=== PATIENT | male | born 1955 | race Caucasian/White ===

== ENCOUNTER 2018-05-20 21:26 | Inpatient (IN) | payer OTHER ==
[~2018-05-20] VITALS: Ht 177.8 cm; Wt 74.3 kg
[~2018-05-20 21:26] MED LIST: ALTACE10 MG PO; HCTZ 25MG25 MG PO; PRILOSEC 20MG20 MG PO
[2018-05-20 22:31] LABS: BASO # 0.1 (0.0-0.2); BASO % 0.5 % (0.0-2.0); GRAN # 11.9 (1.4-6.5); GRAN % 79.4 % (42.2-75.2); LYMPH # 1.9 (1.2-3.4); LYMPH % 12.3 % (20.0-51.0); MEAN CELL VOLUME 100 fl (80.0-100.0); MEAN CORPUSCULAR HGB CONC 32 g/dl (33.0-37.0); MEAN PLATELET VOLUME 12.1 fl (7.4-10.4); MONO # 1.1 (0.1-0.6); MONO % 7.1 % (1.7-9.3); PLATELET COUNT 189 K/mm3 (130-400); RED BLOOD COUNT 5.69 M/mm3 (4.20-5.60); REDCELL DISTRIBUTION WIDTH-CV 13.6 % (11.5-14.5)
[2018-05-20 22:32] LABS: HEMATOCRIT 56.8 % (42.0-52.0); HEMOGLOBIN 18.2 g/dl (13.5-18.0); MEAN CORPUSCULAR HEMOGLOBIN 32 pg (27.0-31.0)
[2018-05-20 22:41] LABS: ACETONE,SERUM SMALL
[2018-05-20 22:47] LABS: ALANINE AMINOTRANSFERASE 21 U/L (21-72); ALBUMIN 4.6 gm/dL (3.5-5.0); ALKALINE PHOSPHATASE 137 U/L (50-136); ANION GAP 33 mmol/L (7-16); AST,SGOT 20 U/L (15-37); BILIRUBIN,TOTAL 0.6 mg/dL (0.0-1.0); BLOOD UREA NITROGEN 31 mg/dL (9-20); CALCIUM 10.9 mg/dL (8.4-10.2); CHLORIDE 98 mmol/L (98-107); CREATININE, serum 2.64 mg/dL (0.66-1.25); LIPASE 199 U/L (23-300); POTASSIUM 5.6 mmol/L (3.4-5.0); SODIUM 137 mmol/L (137-145); TOTAL PROTEIN 7.9 gm/dL (6.4-8.2)
[2018-05-20 22:58] LABS: ARTERIAL BLD GAS O2 SATURATION 97.8 % (92-100); ARTERIAL BLD GAS TCO2 CT 1.9; ARTERIAL BLOOD GAS BASE EXCESS -26.3 (-2-2); ARTERIAL BLOOD GAS HCO3 1.7 meq/L (22-26)
[2018-05-20 22:59] LABS: ARTERIAL BLOOD GAS PCO2 6.5 mmHg (35-45); ARTERIAL BLOOD GAS PO2 151.4 mmHg (80-100); ARTERIAL BLOOD GAS pH 7.04 (7.35-7.45)
[2018-05-20 22:59] LABS: GLUCOSE 770 mg/dL (74-106)
[2018-05-20 23:00] LABS: CARBON DIOXIDE 6 mmol/L (22-30)
[2018-05-20 23:05] LABS: TROPONIN-I 0.035 ng/mL (0.000-0.034)
--- NOTE | 2018-05-20 23:48 | NUR ---
PT PLACED ON NRB DUE TO ABG RESULTS. OXYGENATION IS ADEQUETE, VENTILATION IS NOT. CO2 WAS [address] SERRANO RECOMMENDED NRB TO RECYCLE C02 AND TO DECREASE PTS HYPERVENTILATION. WILL CONTINUE TO MONITOR PT IS BROUGHT TO ICU.
[2018-05-21] VITALS (783 sets, daily range): BP systolic 82–131; BP diastolic 51–80; PULSE 71–106; TEMP 96.3–99.2; O2SAT 70–100
--- NOTE | 2018-05-21 00:15 | NUR ---
Patient arrives to ICU room 3 from ED via cart and is attached to monitors. See associated vitals and assessment. Patient is confused and slighly combative. He does not follow commands appropriately. Pupils are sluggishly reactive. Skin is notably mottled from nipple line to toes and cool to touch. Family is at bedside and Sierra, DIRECT CUSTOMER SERVICE REPRESENTATIVE is present to discuss POC. Insulin gtt is verified to run at 6units/hr or 6ml/hr with NS on straight tubing to left wrist peripheral site. Two 22g peripheral IV's are noted to the left wrist, the more medial IV is noted to be displaced with edema at this site. Unable to flush this line and it is discontinued. Care assumed.
--- NOTE | 2018-05-21 00:30 | NUR ---
Dr. Choi contacted by MAXI Esquivel for weaver tire cord consult.
--- NOTE | 2018-05-21 00:40 | NUR ---
Patient's second peripheral line infiltrates. This is discontinued and MD notified.
--- NOTE | 2018-05-21 00:46 | NUR ---
Femoral line inserted at this time by Dr. Choi using sterile technique and without complication. Sedation provided as documented in MAR. Care ongoing.
[2018-05-21 00:53] LABS: COLLECTION METHOD CLEAN CATCH
[2018-05-21 00:58] LABS: CALCIUM 10.2 mg/dL (8.4-10.2); CREATININE, serum 2.96 mg/dL (0.66-1.25); MAGNESIUM 2.9 mg/dL (1.6-2.3); POTASSIUM 4.8 mmol/L (3.4-5.0)
[2018-05-21 01:02] LABS: MUCOUS Present /lpf; PH 5 (5-8); SQUAMOUS EPITHELIAL 0-2 /hpf; URINE APPEARANCE Clear; URINE BACTERIA Rare /hpf; URINE BILIRUBIN Negative (NEGATIVE); URINE BLOOD 2+ (NEGATIVE); URINE COLOR Yellow; URINE GLUCOSE 3+ (NEGATIVE); URINE KETONE 1+ (NEGATIVE); URINE LEUKOCYTE ESTERASE Negative (NEGATIVE); URINE NITRATE Negative (NEGATIVE); URINE PROTEIN(semi-quant) 1+ (NEGATIVE); URINE RBC 0-2 /hpf; URINE UROBILINOGEN Negative (NEGATIVE)
[2018-05-21 01:34] LABS: INR 0.8 (0.8-3.0); PROTHROMBIN TIME 9.6 SECONDS (9.7-12.8)
[2018-05-21 01:37] LABS: PARTIAL THROMBOPLASTIN TIME 29.8 SECONDS (26.0-37.0)
[2018-05-21 01:59] LABS: ACETAMINOPHEN < 10 ug/mL (10-30); ALCOHOL(ethanol),MEDICAL < 10 mg/dL; SALICYLATE < 1.0 mg/dL
[2018-05-21 02:28] LABS: CALCIUM 8.4 mg/dL (8.4-10.2); CREATININE, serum 2.39 mg/dL (0.66-1.25); MAGNESIUM 2.2 mg/dL (1.6-2.3); POTASSIUM 3.8 mmol/L (3.4-5.0)
--- NOTE | 2018-05-21 02:30 | NUR ---
Dr. Castillo discusses POC with this nurse and is provided telephone number for Dr. Choi per request.
--- NOTE | 2018-05-21 02:36 | NUR ---
Dr. Castillo updates POC to include Anesthesia consult for intubation and ART line placement. supervisor long goods pages AA on provider at this time.
[2018-05-21 02:45] LABS: TRICYCLIC ANTIDEPRESS URINE NEGATIVE
--- NOTE | 2018-05-21 02:46 | NUR ---
Patient , María is called regarding changes to POC. Phone consent is provided for described procedures. All questions asked answered.
--- NOTE | 2018-05-21 03:10 | NUR ---
Patient intubated at this time by Devonte Roberto CRNA. Sedation is as documented and administered by provider. 8.0 tube placed 22cm at the lip with positive bilateral breath sounds upon auscultation. OG is placed 70cm at the lip and placed to LIS. To note, patient experienced 1 round of emesis, dark in color and with coffee ground appearance. Oral suctioning is provided prior to intubation. Care ongoing.
--- NOTE | 2018-05-21 03:19 | NUR ---
ART line placed by Devonte Roberto CRNA with multiple attempted sticks to bilateral arms. Now secured is a left radial ART line with corresponding waveform and readings to cuff pressures.
[2018-05-21 04:29] LABS: ARTERIAL BLD GAS O2 SATURATION 98.2 % (92-100); ARTERIAL BLD GAS TCO2 CT 9.6; ARTERIAL BLOOD GAS BASE EXCESS -22.6 (-2-2); ARTERIAL BLOOD GAS HCO3 8.4 meq/L (22-26); ARTERIAL BLOOD GAS PCO2 36.7 mmHg (35-45)
[2018-05-21 04:30] LABS: ARTERIAL BLOOD GAS pH 6.98 (7.35-7.45)
[2018-05-21 04:31] LABS: ARTERIAL BLOOD GAS PO2 171.2 mmHg (80-100)
[2018-05-21 05:22] LABS: GASTROCCULT NEGATIVE; pH GASTRIC CONTENTS 4
--- NOTE | 2018-05-21 05:26 | NUR ---
No sedation vacation provided. Patient sedation only now initiated secondary to coughing and gag reflex to ETT.
[2018-05-21 05:31] LABS: CALCIUM 7.3 mg/dL (8.4-10.2); CREATININE, serum 1.75 mg/dL (0.66-1.25); POTASSIUM 3.7 mmol/L (3.4-5.0)
[2018-05-21 06:32] LABS: CALCIUM 7.3 mg/dL (8.4-10.2); CREATININE, serum 1.64 mg/dL (0.66-1.25); POTASSIUM 3.3 mmol/L (3.4-5.0)
[2018-05-21 06:36] LABS: ARTERIAL BLD GAS O2 SATURATION 90.1 % (92-100); ARTERIAL BLD GAS TCO2 CT 16.2; ARTERIAL BLOOD GAS BASE EXCESS -8.7 (-2-2); ARTERIAL BLOOD GAS HCO3 15.4 meq/L (22-26); ARTERIAL BLOOD GAS PCO2 28.6 mmHg (35-45); ARTERIAL BLOOD GAS PO2 55.1 mmHg (80-100); ARTERIAL BLOOD GAS pH 7.35 (7.35-7.45)
[2018-05-21 06:40] LABS: GASTROCCULT NEGATIVE; pH GASTRIC CONTENTS 4
[2018-05-21] MEDS ORDERED: LOPRESSOR100 MG PO (06:59)
[2018-05-21] MEDS ORDERED: PRAVACHOL80 MG PO (07:01)
[2018-05-21] MEDS ORDERED: NORVASC 10MG10 MG PO (07:02)
--- NOTE | 2018-05-21 07:14 | NUR ---
PT WAS INTUBATED WITH AN 8.0 ETT. PLACED ON DOCUMENTED SETTINGS FOR THIS TIME. WILL OBTAIN ABG TO ASSESS CURRENT VENT SETTINGS. WILL CONTINUE TO MONITOR
--- NOTE | 2018-05-21 07:20 | NUR ---
VENT CHANGES MADE DUE TO ABG RESULTS. [facility] AND ASSESSED PTS STATUS AND WILL CONTINUE TO MONITOR, ABG WILL BE DRAWN AGAIN AT 0630 TO ASSESS VENT CHANGES THAT OCCURED TO ASSESS PTS STATUS. WILL CONTNUE TO MONITOR. ABG RESULTS FOR 629 TO BE CALLED TO [facility] AT 0645 AND WILL GO FROM THERE.
--- NOTE | 2018-05-21 07:25 | NUR ---
VENT CHANGES MADE ONCE MORE DUE TO ABG RESULTS. WILL CONTINUE TO MONITOR. NO ORAL CARE OR SUCTIONING HAS BEEN DONE BY THIS RT, RN HAS DONE ALL ORAL AND SUCTIONING AT THIS TIME.
--- NOTE | 2018-05-21 07:27 | NUR ---
NO ORAL CARE, SNV TREATMENTS, OR SUCTIONING HAS BEEN DONE FOR THIS PT BY THIS RT FOR TODAY. ALL VENT CHANGED MADE BY [facility] DUE TO ABG RESULTS. WILL CONTINUE TO MONITOR AND WILL LET DAY SHIFT KNOW OF CHANGES MADE.
[2018-05-21 08:15] LABS: BASO % 0.2 % (0.0-2.0); GRAN # 9.2 (1.4-6.5); GRAN % 83.7 % (42.2-75.2); HEMATOCRIT 38.8 % (42.0-52.0); LYMPH # 1.1 (1.2-3.4); MEAN CORPUSCULAR HGB CONC 36 g/dl (33.0-37.0); MEAN PLATELET VOLUME 10.9 fl (7.4-10.4); MONO # 0.6 (0.1-0.6); MONO % 5.6 % (1.7-9.3); PLATELET COUNT 138 K/mm3 (130-400); RED BLOOD COUNT 4.27 M/mm3 (4.20-5.60); REDCELL DISTRIBUTION WIDTH-CV 13.2 % (11.5-14.5)
[2018-05-21 08:19] LABS: HEMOGLOBIN 13.8 g/dl (13.5-18.0); MEAN CELL VOLUME 91 fl (80.0-100.0); MEAN CORPUSCULAR HEMOGLOBIN 32 pg (27.0-31.0)
[2018-05-21 08:25] LABS: CALCIUM 7.4 mg/dL (8.4-10.2); CREATININE, serum 1.37 mg/dL (0.66-1.25); POTASSIUM 3.1 mmol/L (3.4-5.0)
[2018-05-21 09:18] LABS: ARTERIAL BLD GAS O2 SATURATION 97.4 % (92-100); ARTERIAL BLD GAS TCO2 CT 18.2; ARTERIAL BLOOD GAS BASE EXCESS -4.9 (-2-2); ARTERIAL BLOOD GAS HCO3 17.4 meq/L (22-26); ARTERIAL BLOOD GAS PCO2 25.6 mmHg (35-45); ARTERIAL BLOOD GAS PO2 101.5 mmHg (80-100); ARTERIAL BLOOD GAS pH 7.45 (7.35-7.45)
[2018-05-21 10:39] LABS: CALCIUM 7.5 mg/dL (8.4-10.2); CREATININE, serum 1.41 mg/dL (0.66-1.25)
[2018-05-21 10:40] LABS: POTASSIUM 2.9 mmol/L (3.4-5.0)
[2018-05-21 11:01] LABS: MAGNESIUM 1.8 mg/dL (1.6-2.3); PHOSPHOROUS 1.2 mg/dL (2.5-4.5)
--- NOTE | 2018-05-21 11:48 | NUR ---
1148 TIME CALLED CALLED FOR BRONCH. [address] BURCH, RTX2, EVP AND CHIEF OPERATING OFFICER, RN X3 AT BEDSIDE. BRONCH WASHINGS OBTAINED AND SENT TO LAB. 1156 PROCEDURE COMPLETE. TOLERATE FAIR. FAMILY UPDATED.
[2018-05-21 12:22] LABS: CALCIUM 7.3 mg/dL (8.4-10.2)
[2018-05-21 12:36] LABS: POTASSIUM 2.9 mmol/L (3.4-5.0)
[2018-05-21 12:40] LABS: CREATININE, serum 1.32 mg/dL (0.66-1.25)
[2018-05-21 13:38] LABS: ARTERIAL BLD GAS O2 SATURATION 98.6 % (92-100); ARTERIAL BLD GAS TCO2 CT 21.4; ARTERIAL BLOOD GAS BASE EXCESS -2.3 (-2-2); ARTERIAL BLOOD GAS HCO3 20.5 meq/L (22-26); ARTERIAL BLOOD GAS PCO2 30.1 mmHg (35-45); ARTERIAL BLOOD GAS pH 7.45 (7.35-7.45)
--- NOTE | 2018-05-21 13:50 | NUR ---
TO CT WITH RN AND RT VIA BED. [address] UNABLE TO COMPLETE ALL TESTS WHILE IN CT, ONLY HEAD DONE DT PATIENT COMBATIVE AND RESTLESS. THIS RN UNABLE TO KEEP PATIENT CALM ON CT TABLE.
[2018-05-21 14:59] LABS: CALCIUM 7.1 mg/dL (8.4-10.2); CREATININE, serum 1.23 mg/dL (0.66-1.25); POTASSIUM 3.4 mmol/L (3.4-5.0)
[2018-05-21 17:12] LABS: CALCIUM 7.1 mg/dL (8.4-10.2); CREATININE, serum 1.19 mg/dL (0.66-1.25); POTASSIUM 3.9 mmol/L (3.4-5.0)
[2018-05-21 18:39] LABS: CALCIUM 6.9 mg/dL (8.4-10.2); CREATININE, serum 1.14 mg/dL (0.66-1.25); POTASSIUM 3.4 mmol/L (3.4-5.0)
--- NOTE | 2018-05-21 19:20 | NUR ---
BEDSIDE REPORT GIVEN TO USHA THOMPSON. FAMILY AT BEDSIDE AND PARTICIPATE IN REPORT. PATIENT REPOSITIONED AND PERICARE DONE. VERY RESTLESS DURING AND AFTER REPOSITIONING.
--- NOTE | 2018-05-21 19:45 | NUR ---
Bedside report received from DONNA Osuna. Linens changed, pericare provided, and patient repositioned. All lines and medications gone over. Transfer of care at this time.
--- NOTE | 2018-05-21 20:00 | NUR ---
Patient's family at the bedside. Assessment complete. Patient is resting on the vent, but is restless. Patient kicks his legs frequently and pulls at the restraints, but then seems to calm down. Assessment reveals coarse lung sounds, hypoactive bowel sounds, and sluggish pupil reactions. Patient has no current needs at this time. Will continue to monitor.
[2018-05-21 20:15] LABS: ARTERIAL BLD GAS O2 SATURATION 97.7 % (92-100); ARTERIAL BLD GAS TCO2 CT 19.4; ARTERIAL BLOOD GAS BASE EXCESS -4.1 (-2-2); ARTERIAL BLOOD GAS HCO3 18.6 meq/L (22-26); ARTERIAL BLOOD GAS PCO2 27.5 mmHg (35-45); ARTERIAL BLOOD GAS PO2 118.4 mmHg (80-100); ARTERIAL BLOOD GAS pH 7.45 (7.35-7.45)
--- NOTE | 2018-05-21 21:35 | NUR ---
Patient has become more agitated at this time and shows no signs of calming down like he had previously. Patient's propofol was increased at 10min intervals up to 35mcg/kg/min before patient calmed down again. Patient continues to wiggle in the bed, but no longer appears agitated. Will continue to monitor. Call light within reach.
--- NOTE | 2018-05-21 23:10 | NUR ---
Starting at 2240pm patient started to become more and more agitated. Patient started kicking and thrashing even with family at bedside trying to calm him. Patient became increasingly more awake and was violently pulling at restraints and sitting all the way up with the vent. Patient was attempting to get out of bed. Family helped keep patient in bed and tried to keep him calm. Propofol was increased every 10mins until max dose of 50mcg/kg/min was reached. At 2306 patient was given a dose of fentanyl while family was restraining him. After a few minutes the patient finally became calm and was no longer fighting against restraints or the ventilator. At this point DONNA Rogers had called [facility] to obtain an order for fentanyl drip. Awaiting orders. Patient is now resting calmly. Will continue to monitor. Call light within reach.
[2018-05-22] VITALS (1019 sets, daily range): BP systolic 93–123; BP diastolic 48–64; PULSE 88–112; TEMP 98.4–101.2; O2SAT 91–100
--- NOTE | 2018-05-22 | NUR ---
Assessment complete at this time. Patient continues to have sluggish pupil reactions, hypoactive bowel sounds, and coarse lung sounds. Patient appears comfortable since start of fentanyl drip. Will continue to monitor.
--- NOTE | 2018-05-22 04:00 | NUR ---
assessment complete at this time. Patient is resting on the vent comfortably. Sedation (propofol) turned down. Patient does not appear to be in any distress. VSS. Will continue to monitor.
[2018-05-22 05:08] LABS: ARTERIAL BLD GAS O2 SATURATION 97.8 % (92-100); ARTERIAL BLD GAS TCO2 CT 17.9; ARTERIAL BLOOD GAS BASE EXCESS -6.9 (-2-2); ARTERIAL BLOOD GAS PCO2 29.3 mmHg (35-45); ARTERIAL BLOOD GAS PO2 131.3 mmHg (80-100); ARTERIAL BLOOD GAS pH 7.38 (7.35-7.45)
--- NOTE | 2018-05-22 05:13 | NUR ---
Patient's sedation was decreased at 0400, but became very agitated again at 0425 when the care technician went to move him. sedation was increased, both the propofol and fentanyl. Patient continues to have a high respiratory rate of 30-40/min and a heart rate in the 120's. Gwen called and notified. Order from Dr. Castillo for 150mcg IV bolus Now. To be given.
[2018-05-22 07:04] LABS: ALANINE AMINOTRANSFERASE 29 U/L (21-72); ALKALINE PHOSPHATASE 65 U/L (50-136); ANION GAP 4 mmol/L (7-16); AST,SGOT 31 U/L (15-37); BILIRUBIN,TOTAL 0.3 mg/dL (0.0-1.0); BLOOD UREA NITROGEN 14 mg/dL (9-20); CALCIUM 7.5 mg/dL (8.4-10.2); CARBON DIOXIDE 23 mmol/L (22-30); CHLORIDE 113 mmol/L (98-107); CREATININE, serum 0.97 mg/dL (0.66-1.25); GLUCOSE 257 mg/dL (74-106); MAGNESIUM 1.4 mg/dL (1.6-2.3); SODIUM 141 mmol/L (137-145); TOTAL PROTEIN 4.2 gm/dL (6.4-8.2)
[2018-05-22 07:09] LABS: PHOSPHOROUS < 0.5 mg/dL (2.5-4.5)
[2018-05-22 07:11] LABS: POTASSIUM 2.9 mmol/L (3.4-5.0)
--- NOTE | 2018-05-22 07:20 | NUR ---
Bedside report received from DONNA James.
[2018-05-22 07:31] LABS: MEAN CELL VOLUME 91 fl (80.0-100.0); MEAN CORPUSCULAR HGB CONC 35 g/dl (33.0-37.0); MEAN PLATELET VOLUME 11.6 fl (7.4-10.4); RED BLOOD COUNT 3.36 M/mm3 (4.20-5.60); REDCELL DISTRIBUTION WIDTH-CV 14.1 % (11.5-14.5)
[2018-05-22 07:33] LABS: HEMATOCRIT 30.7 % (42.0-52.0); HEMOGLOBIN 10.8 g/dl (13.5-18.0); MEAN CORPUSCULAR HEMOGLOBIN 32 pg (27.0-31.0); PLATELET COUNT 65 K/mm3 (130-400)
--- NOTE | 2018-05-22 07:35 | NUR ---
Bedside report given to DONNA Zhang. All lines and medications reviewed. Transfer of care at this time.
[2018-05-22 07:52] LABS: BAND 21 % (0-10); LYMPHOCYTE 6 % (20.0-51.0); NEUTROPHILS 73 % (42.0-75.2); PLATELET ESTIMATE DECREASED (NORMAL)
--- NOTE | 2018-05-22 08:50 | NUR ---
Assessment complete, patient remains intubated, gtts infusing as charted. Bilateral wrist restraints in place, family at bedside. AM care complete.
[2018-05-22 10:14] LABS: PROTHROMBIN TIME 11.9 SECONDS (9.7-12.8)
--- NOTE | 2018-05-22 11:23 | NUR ---
AIVS here to place picc line.
--- NOTE | 2018-05-22 13:40 | NUR ---
Patient taken to CT with this RN, Patience,RT, and two CT techs.
--- NOTE | 2018-05-22 14:00 | NUR ---
Back from CT.
--- NOTE | 2018-05-22 14:23 | NUR ---
First visit from the tail worker. No needs right now.
[2018-05-22 15:19] LABS: ARTERIAL BLD GAS O2 SATURATION 94.3 % (92-100); ARTERIAL BLD GAS TCO2 CT 17.8; ARTERIAL BLOOD GAS BASE EXCESS -6.6 (-2-2); ARTERIAL BLOOD GAS PCO2 28.2 mmHg (35-45); ARTERIAL BLOOD GAS PO2 66.6 mmHg (80-100)
--- NOTE | 2018-05-22 16:00 | NUR ---
Dr. Crowder here, Precedex gtt initiated, per Dr. Crowder orders.
--- NOTE | 2018-05-22 16:03 | NUR ---
Patient is currently on ventilator. Spouse was not available when social science analyst made rounds. Case management will attempt to see family on Tuesday.
--- NOTE | 2018-05-22 17:59 | NUR ---
Bedside report given to DONNA Israel.
[2018-05-22 18:40] LABS: MAGNESIUM 1.8 mg/dL (1.6-2.3); PHOSPHOROUS 1.9 mg/dL (2.5-4.5); POTASSIUM 3.8 mmol/L (3.4-5.0)
[2018-05-23] VITALS (1264 sets, daily range): BP systolic 82–113; BP diastolic 40–70; PULSE 99–107; TEMP 98.8–101.6; O2SAT 68–98
[2018-05-23 04:53] LABS: ARTERIAL BLD GAS O2 SATURATION 95.2 % (92-100); ARTERIAL BLD GAS TCO2 CT 20.7; ARTERIAL BLOOD GAS BASE EXCESS -3.9 (-2-2); ARTERIAL BLOOD GAS HCO3 19.8 meq/L (22-26); ARTERIAL BLOOD GAS PCO2 31.9 mmHg (35-45); ARTERIAL BLOOD GAS PO2 72.5 mmHg (80-100); ARTERIAL BLOOD GAS pH 7.41 (7.35-7.45)
--- NOTE | 2018-05-23 04:56 | NUR ---
PT'S BP HAS DIPPED A FEW TIMES TONIGHT, BICARB 19.8 ON THIS ABG. PT IS NOT A CANDIDATE FOR SMARTCARE TRIAL FOR THOSE REASONS, AND A PEEP OF 10. WILL CONTINUE TO MONITOR AND WEAN.
--- NOTE | 2018-05-23 05:00 | NUR ---
Patient has increased agitation when turning, easily aroused. Not a candidate for smartcare, declining for sedation vacation at this time.
[2018-05-23 06:06] LABS: MEAN CELL VOLUME 94 fl (80.0-100.0); MEAN CORPUSCULAR HEMOGLOBIN 32 pg (27.0-31.0); MEAN CORPUSCULAR HGB CONC 34 g/dl (33.0-37.0); MEAN PLATELET VOLUME 12.2 fl (7.4-10.4); PLATELET COUNT 77 K/mm3 (130-400); RED BLOOD COUNT 3.74 M/mm3 (4.20-5.60); REDCELL DISTRIBUTION WIDTH-CV 14.5 % (11.5-14.5)
[2018-05-23 06:12] LABS: INR 1.1 (0.8-3.0); PROTHROMBIN TIME 12.9 SECONDS (9.7-12.8)
[2018-05-23 06:22] LABS: ALBUMIN 2.2 gm/dL (3.5-5.0); BILIRUBIN,TOTAL 0.5 mg/dL (0.0-1.0); CALCIUM 7.1 mg/dL (8.4-10.2); CREATININE, serum 1.2 mg/dL (0.66-1.25); MAGNESIUM 1.5 mg/dL (1.6-2.3); PHOSPHOROUS 2.1 mg/dL (2.5-4.5); POTASSIUM 3.2 mmol/L (3.4-5.0); TOTAL PROTEIN 4.7 gm/dL (6.4-8.2)
--- NOTE | 2018-05-23 07:00 | NUR ---
Bedside report recieved from Jhonatan THOMPSON. All gtts, lines and tubes reviewed. Family at bedside. VSS, pt becomes aggitted with turning and oral care.
--- NOTE | 2018-05-23 10:00 | NUR ---
Dr Flores at bedside. Sedation turned off at 1000. 1006 Pt become aggitated: opening his eys widley, attemtping to pull at lines and tubes, did not follow commands. 1008 Sedation gtts remsumed. 1010 50mg Propofol administered as per VORB from Dr Flores while at bedside. Family at bedside throughout sedation vacation. All questions answered.
[2018-05-23 10:16] LABS: BAND 34 % (0-10); EOSINOPHIL 1 % (0-4); LYMPHOCYTE 14 % (20.0-51.0); NEUTROPHILS 47 % (42.0-75.2)
[2018-05-23 10:17] LABS: ANISOCYTOSIS 1+; BURR CELLS 1+; PLATELET ESTIMATE DECREASED (NORMAL)
--- NOTE | 2018-05-23 11:48 | NUR ---
Initial visit; (On-Call), Tabular Typist initiated prayer for family of approximately 13 in [facility]. Tabular Typist offered support and inquired as to what additional concerns they may have and left them alone to make calls and pray. then offered prayer for Supa with his mother and aunt present in his room. Tabular Typist assured them of her availability if/when needed.
[2018-05-23 11:50] LABS: ARTERIAL BLD GAS O2 SATURATION 94.9 % (92-100); ARTERIAL BLOOD GAS BASE EXCESS -4.5 (-2-2); ARTERIAL BLOOD GAS HCO3 19.1 meq/L (22-26); ARTERIAL BLOOD GAS PCO2 30.8 mmHg (35-45); ARTERIAL BLOOD GAS PO2 74.5 mmHg (80-100); ARTERIAL BLOOD GAS pH 7.41 (7.35-7.45)
[2018-05-23 13:42] LABS: ARTERIAL BLD GAS O2 SATURATION 94.7 % (92-100); ARTERIAL BLD GAS TCO2 CT 16.2; ARTERIAL BLOOD GAS BASE EXCESS -8.5 (-2-2); ARTERIAL BLOOD GAS HCO3 15.3 meq/L (22-26); ARTERIAL BLOOD GAS PCO2 27.1 mmHg (35-45); ARTERIAL BLOOD GAS PO2 73.5 mmHg (80-100); ARTERIAL BLOOD GAS pH 7.37 (7.35-7.45)
--- NOTE | 2018-05-23 14:30 | NUR ---
Pt to CT scan accompanied by Area Operations Manager Mateo THOMPSON, Patience RT, and myself
--- NOTE | 2018-05-23 15:00 | NUR ---
Returned to ICU from CT. Pt handled the procedure well. No complications during transport or transfer to and fro. VSS remained stable. Family updated and now and bedside.
--- NOTE | 2018-05-23 19:35 | NUR ---
Patient assessment completed and charted at this time, please see documentation for details. Patient resting in bed, tolerating ventilator well at this time. No family present for education, will continue to monitor and assess.
[2018-05-24] VITALS (1435 sets, daily range): BP systolic 83–146; BP diastolic 40–65; PULSE 98–120; TEMP 100.2–102.1; O2SAT 86–100
--- NOTE | 2018-05-24 | NUR ---
Patient tolerating ventilator well, easily aroused upon entering room. Patient does remain agitated when moving, will continue to monitor, restraints reinforced at this time.
[2018-05-24 00:30] LABS: COLLECTION METHOD CLEAN CATCH
[2018-05-24 02:18] LABS: BUDDING YEAST Present /hpf; GRANULAR CAST >12 /lpf; MUCOUS Present /lpf; PH 5 (5-8); SQUAMOUS EPITHELIAL None Seen /hpf; URINE APPEARANCE Turbid; URINE BACTERIA Rare /hpf; URINE BILIRUBIN Negative (NEGATIVE); URINE BLOOD 3+ (NEGATIVE); URINE COLOR Yellow; URINE GLUCOSE 1+ (NEGATIVE); URINE KETONE Negative (NEGATIVE); URINE LEUKOCYTE ESTERASE 2+ (NEGATIVE); URINE NITRATE Negative (NEGATIVE); URINE PROTEIN(semi-quant) 1+ (NEGATIVE); URINE RBC >50 /hpf; URINE UROBILINOGEN Negative (NEGATIVE)
--- NOTE | 2018-05-24 05:00 | NUR ---
Patient aroused easily with sedation, fights ventilator and not candidate for weaning. No sedation vacation at this time.
[2018-05-24 05:11] LABS: ARTERIAL BLD GAS O2 SATURATION 90.4 % (92-100); ARTERIAL BLD GAS TCO2 CT 17.2; ARTERIAL BLOOD GAS BASE EXCESS -6.6 (-2-2); ARTERIAL BLOOD GAS HCO3 16.4 meq/L (22-26); ARTERIAL BLOOD GAS PCO2 25.7 mmHg (35-45); ARTERIAL BLOOD GAS PO2 57.7 mmHg (80-100); ARTERIAL BLOOD GAS pH 7.42 (7.35-7.45)
[2018-05-24 05:20] LABS: HEMOGLOBIN 11.4 g/dl (13.5-18.0); MEAN CELL VOLUME 96 fl (80.0-100.0); MEAN CORPUSCULAR HEMOGLOBIN 33 pg (27.0-31.0); MEAN CORPUSCULAR HGB CONC 34 g/dl (33.0-37.0); MEAN PLATELET VOLUME 11.7 fl (7.4-10.4); PLATELET COUNT 65 K/mm3 (130-400); RED BLOOD COUNT 3.49 M/mm3 (4.20-5.60); REDCELL DISTRIBUTION WIDTH-CV 15.1 % (11.5-14.5)
[2018-05-24 05:21] LABS: HEMATOCRIT 33.5 % (42.0-52.0)
[2018-05-24 05:22] LABS: INR 1.2 (0.8-3.0); PROTHROMBIN TIME 13.5 SECONDS (9.7-12.8)
[2018-05-24 05:28] LABS: ALBUMIN 1.9 gm/dL (3.5-5.0); BILIRUBIN,TOTAL 0.9 mg/dL (0.0-1.0); CALCIUM 6.8 mg/dL (8.4-10.2); CREATININE, serum 1.14 mg/dL (0.66-1.25); MAGNESIUM 1.8 mg/dL (1.6-2.3); PHOSPHOROUS 3.3 mg/dL (2.5-4.5); POTASSIUM 4.3 mmol/L (3.4-5.0); TOTAL PROTEIN 4.2 gm/dL (6.4-8.2)
--- NOTE | 2018-05-24 07:00 | NUR ---
Bedside report received from DONNA Israel.
--- NOTE | 2018-05-24 07:04 | NUR ---
PT IS TOO UNSTABLE TO DO CPAP BREATHING TRIAL. IS REQUIRING MORE OXYGEN THAN WAS NEEDED BEFORE. WILL CONTINUE TO MONITOR AND ASSESS
--- NOTE | 2018-05-24 07:25 | NUR ---
Assessment complete, patient remains intubated, gtts as charted. AM care complete, patient repositioned for comfort.
--- NOTE | 2018-05-24 08:40 | NUR ---
PT here to work with patient.
--- NOTE | 2018-05-24 09:21 | NUR ---
AIVS here to place additional picc line.
[2018-05-24 09:34] LABS: ARTERIAL BLD GAS O2 SATURATION 96.9 % (92-100); ARTERIAL BLOOD GAS HCO3 17.1 meq/L (22-26); ARTERIAL BLOOD GAS PCO2 29.8 mmHg (35-45); ARTERIAL BLOOD GAS PO2 98.9 mmHg (80-100); ARTERIAL BLOOD GAS pH 7.38 (7.35-7.45)
[2018-05-24 09:49] LABS: BAND 21 % (0-10); LYMPHOCYTE 5 % (20.0-51.0); NEUTROPHILS 73 % (42.0-75.2)
[2018-05-24 09:51] LABS: TOXIC GRANULATION PRESENT
[2018-05-24 09:52] LABS: PLATELET ESTIMATE DECREASED (NORMAL)
--- NOTE | 2018-05-24 11:11 | NUR ---
addiction social worker attended clinical rounds and met with spouse, Maíra #[phone] and offered support. Patient lives with spouse and has been independent with his activities of daily living. Patient recently retired and is now under the spouse's insurance. Spouse states she met with admissions and they have the correct insurance information. One daughter is leaving today and other's are visiting and in the waiting room. One daughter lives local. Worker offered emotional support and will continue to follow and assist with securing a safe discharge plan. Patient is currently sedated and intubated. Patient was securing Dr Muro as his primary care physician.
--- NOTE | 2018-05-24 12:00 | NUR ---
Patient awakens when turned, coughs against ventilator, pulls hard at restraints, pulls head of pillow and tries to set up when stimulated.
--- NOTE | 2018-05-24 13:54 | NUR ---
14 mg nicoderm patch placed on right deltoid.
--- NOTE | 2018-05-24 15:18 | NUR ---
Follow-up; Land Examiner looked in on family in Waiting Room to offer support and encouragement. They thanked for keeping them and Supa in her prayers.
--- NOTE | 2018-05-24 17:00 | NUR ---
Patient aggitated, fighting against ventilator, pulling at restraints, no sedation vacation, family at bedside.
--- NOTE | 2018-05-24 19:28 | NUR ---
Bedside report given to DONNA Oneil.
--- NOTE | 2018-05-24 20:30 | NUR ---
PT HAS GENERALIZED BRUISING ACCROSS UPPER TORSO AND UPPER EXTREMETIES. RIGHT FOREARM SMALL SKIN TEAR. LEFT BUTTOCK BRUISE WITH SMALL ABRASION. PT WAS FEBRILE AT SHIFT CHANGE WITH TEMP 102.0 TAKEN BY DAYSHIFT NURSE. PT NOT OPENING EYES, NOT FOLLOWING COMMANDS, BUT IS RESTLESS.
[2018-05-25] VITALS (650 sets, daily range): BP systolic 108–151; BP diastolic 66–99; PULSE 106–154; TEMP 100.1–103.2; O2SAT 92–100
[2018-05-25 03:10] LABS: HEMATOCRIT 30.5 % (42.0-52.0); HEMOGLOBIN 10.2 g/dl (13.5-18.0); MEAN CELL VOLUME 95 fl (80.0-100.0); MEAN CORPUSCULAR HEMOGLOBIN 32 pg (27.0-31.0); MEAN CORPUSCULAR HGB CONC 33 g/dl (33.0-37.0); MEAN PLATELET VOLUME 11.8 fl (7.4-10.4); PLATELET COUNT 56 K/mm3 (130-400)
[2018-05-25 03:23] LABS: CALCIUM 6.9 mg/dL (8.4-10.2); CREATININE, serum 1.43 mg/dL (0.66-1.25); MAGNESIUM 1.7 mg/dL (1.6-2.3); PHOSPHOROUS 1.7 mg/dL (2.5-4.5); POTASSIUM 4.3 mmol/L (3.4-5.0)
[2018-05-25 03:38] LABS: BAND 8 % (0-10); LYMPHOCYTE 8 % (20.0-51.0); NEUTROPHILS 78 % (42.0-75.2); PLATELET ESTIMATE DECREASED (NORMAL)
[2018-05-25 03:39] LABS: ANISOCYTOSIS 2+; POIKILOCYTOSIS 1+; POLYCHROMASIA 1+; PROLACTIN 8.4 ng/mL (3.7-17.9)
--- NOTE | 2018-05-25 04:32 | NUR ---
PT WAS TAKEN TO CT FOR HEAD SCAN DUE TO HIGH FEVER. BREATHING TREATMENT WAS GIVEN TIME WAS SPENT IN CT, WILL CONTINUE TO MONITOR PT FOR NEED OF A PRN DUONEB TREATMENT. PT IS NOT A CANDIDATE FOR A CPAP TRIAL OR SMART CARE DUE TO HIGH FEVER. WILL CONTINUE TO MONITOR PT AND WILL CONTINUE WITH ABG AT 0500 AM. NO DISTRESS IS NOTED AT THIS TIME WITH THE PATIENT. WILL CONTINUE TO ASSESS AND MONITOR.
--- NOTE | 2018-05-25 05:00 | NUR ---
PT TO CT THIS AM TWICE THIS AM. SEDATION VACATION UNABLE TO OCCUR DUE TO PT CARE NEEDING TO BE CONDUCTED AT TIME AND TRANSPORTING PT.
[2018-05-25 05:06] LABS: ARTERIAL BLD GAS O2 SATURATION 97.9 % (92-100); ARTERIAL BLD GAS TCO2 CT 19.6; ARTERIAL BLOOD GAS BASE EXCESS -5.7 (-2-2); ARTERIAL BLOOD GAS HCO3 18.6 meq/L (22-26); ARTERIAL BLOOD GAS PCO2 32.8 mmHg (35-45); ARTERIAL BLOOD GAS PO2 125.6 mmHg (80-100); ARTERIAL BLOOD GAS pH 7.37 (7.35-7.45)
--- NOTE | 2018-05-25 06:30 | NUR ---
05/24/18 @ 1900: SHIFT REPORT, PT FEBRILE WITH 102.0fF TEMP. PT GIVEN TYLENOL THROUGH OG. SCROTUM ELEVATED DUE TO SWELLING. MOISTURIZER APPLIED TO ABD CREASE WHICH APPEARS CHAPPED. 05/24/18 @ 2200: PT REMAINS FEBRILE, ICE PACK APPLIED TO AXILLARIES AND FOREHEAD. TEMP IN ROOM TURNED DOWN LOW POSSIBLE. PT ONLY HAS SHEET OVER. 05/25/18 @ 0045: RECTAL TEMP PROBE INSERTED AND TEMP FLUCTUATING BY THEE DEGREES. ORAL READING 103.2F. 05/25/18 @ 0145: RECTAL PROBE READING 40.8C. 05/25/18 @ 0155: EICU CONTACTED. 05/25/18 @ 0200: COOLING BLANKET APPLIED. ICE REMAINS AROUND AXILLARIES AND ICE BEHIND NECK. 16F TEMP SÁNCHEZ INSERTED COLD STRIP ROLLER, EVELINA. 05/25/18 @ 0400: WOUND IN BACK UPPER LEFT OF MOUTH, CLOT SUCTIONED. NOT BLEEDING. IN AM SHIFT REPORT, CAUTIONED WHEN PROVIDING MOUTHCARE. 05/25/18 @ 0445: SÁNCHEZ TEMP 102.5F
--- NOTE | 2018-05-25 07:30 | NUR ---
Report received from DONNA Oneil. Care of patient assumed at this time.
--- NOTE | 2018-05-25 08:00 | NUR ---
Patient assessment complete. Patient is resting in bed, sedated and intubated. Patient is responsive only to pain or discomfort; pupillary response is sluggish. Patient's hands are edemetous and arms feature some serous drainage. Cooling blanket still in place with goal temperature of 98.6, current temperature is 100.3. Family is at bedside. Will continue to monitor.
[2018-05-25 08:30] LABS: PATHOLOGY DIFF REVIEW OK
--- NOTE | 2018-05-25 08:30 | NUR ---
bilateral PICC intact right upper arm and left upper arm. With sterile technique right upper arm PICC dressing change done with insertion site cleansed with ChloraPrep 1, gauze removed with no drainage noted, skin prep, StatLock, and Tegaderm applied. Changed and flushed with 10 mL normal saline with good blood return noted. With sterile technique left upper arm PICC dressing change done with insertion site cleansed with ChloraPrep 1, gauze removed with clear drainage noted, skin prep, StatLock, and Tegaderm applied. No signs or symptoms of IV complications noted. Patient unable to address any concerns.both arms wrapped with Micah to protect catheter. Plan is for patient to be transferred today.
--- NOTE | 2018-05-25 10:25 | NUR ---
Follow-up visit; Overhead Distribution Engineer offered comfort and strength to family who are in need of continued prayer. Overhead Distribution Engineer offered prayer for patientSupa as well.
--- NOTE | 2018-05-25 11:00 | NUR ---
Report called to DONNA Gonzalez at [facility].
--- NOTE | 2018-05-25 12:57 | NUR ---
Flight teams arrives at 1130, report given to flight nurse Radha Das. Family is at bedside. Assisted flight team transferring patient to stretcher. Patient leaves hospital by stretcher, loaded onto helicopter at 1257.
--- NOTE | 2018-05-25 13:00 | NUR ---
PT TO [facility]
[2018-05-26 11:34] LABS: VITAMIN B1 98 nmol/L (70-180)
== END 2018-05-25 12:57 | disposition short-term general hospital (02) | DRG 871 ==
LOC: COL.ER 21:26 → ICU 23:08
PROVIDERS: Anesthesiology Critical Care Medicine; Emergency Medicine; Internal Medicine; Internal Medicine Critical Care Medicine; Internal Medicine Pulmonary Disease; Nurse Practitioner Family; Physician Assistant; Psychiatry & Neurology Neurology; ADMIT Internal Medicine
PROC: 5A1945Z Respiratory Ventilation, 24-96 Consecutive Hours (ICD-10-PCS; principal; 2018-05-21)
DX: A41.9 Sepsis, unspecified organism (principal); E11.11 Type 2 diabetes mellitus with ketoacidosis with coma; I21.A1 Myocardial infarction type 2; J96.01 Acute respiratory failure with hypoxia; G93.41 Metabolic encephalopathy; J69.0 Pneumonitis due to inhalation of food and vomit; R65.21 Severe sepsis with septic shock; K55.049 Acute infarction of large intestine, extent unspecified; N17.9 Acute kidney failure, unspecified; E44.0 Moderate protein-calorie malnutrition; I10 Essential (primary) hypertension; E78.5 Hyperlipidemia, unspecified; I27.22 Pulmonary hypertension due to left heart disease; I08.2 Rheumatic disorders of both aortic and tricuspid valves; Z68.20 Body mass index [BMI] 20.0-20.9, adult; E83.39 Other disorders of phosphorus metabolism; D69.6 Thrombocytopenia, unspecified; E86.0 Dehydration
CPT/HCPCS: 99233-AI; 99239; A4216; A4217; C1751; C1894; C9113; J0330; J0610; J0692; J0696; J1170; J1450; J1720; J1815; J1885; J1940; J1956; J2060; J2185; J2405; J2704; J3010; J3370; J3475; J3480; J7030; J7040; J7050; J7060; Q9967

== ENCOUNTER → 2018-07-10 | Outpatient (CLI) | payer OTHER ==
[~2018-07-10] MED LIST changes: +LOPRESSOR100 MG PO; +NORVASC 10MG10 MG PO; +PRAVACHOL80 MG PO
== END ==
LOC: SUN.DIA 09:03
DX: E11.9 Type 2 diabetes mellitus without complications (principal); E78.5 Hyperlipidemia, unspecified; I10 Essential (primary) hypertension; F17.210 Nicotine dependence, cigarettes, uncomplicated
CPT/HCPCS: G0108

== ENCOUNTER → 2018-07-25 | Outpatient (CLI) | payer OTHER | LOC: SUN.DIA 08:42 | DX: E11.9 Type 2 diabetes mellitus without complications (principal); E78.5 Hyperlipidemia, unspecified; I10 Essential (primary) hypertension | CPT/HCPCS: G0108 ==

== ENCOUNTER → 2018-08-23 | Outpatient (CLI) | payer OTHER | LOC: SUN.DIA 15:20 | DX: E11.9 Type 2 diabetes mellitus without complications (principal); Z79.4 Long term (current) use of insulin; E78.5 Hyperlipidemia, unspecified; I10 Essential (primary) hypertension; F17.210 Nicotine dependence, cigarettes, uncomplicated | CPT/HCPCS: G0109 ==

== ENCOUNTER → 2018-09-05 | Outpatient (CLI) | payer OTHER | LOC: SUN.DIA 08-30 15:36 | DX: E11.9 Type 2 diabetes mellitus without complications (principal); E78.5 Hyperlipidemia, unspecified; I10 Essential (primary) hypertension; Z79.4 Long term (current) use of insulin; F17.210 Nicotine dependence, cigarettes, uncomplicated | CPT/HCPCS: G0108 ==

== ENCOUNTER → 2018-09-06 | Outpatient (CLI) | payer OTHER | LOC: SUN.DIA 18:00 | DX: E11.9 Type 2 diabetes mellitus without complications (principal); E78.5 Hyperlipidemia, unspecified; I10 Essential (primary) hypertension; F17.210 Nicotine dependence, cigarettes, uncomplicated | CPT/HCPCS: G0109 ==

== ENCOUNTER → 2018-09-13 | Outpatient (CLI) | payer OTHER | LOC: SUN.DIA 14:52 | DX: E11.9 Type 2 diabetes mellitus without complications (principal); Z79.4 Long term (current) use of insulin; E78.5 Hyperlipidemia, unspecified; I10 Essential (primary) hypertension; F17.210 Nicotine dependence, cigarettes, uncomplicated | CPT/HCPCS: G0109 ==

== ENCOUNTER → 2018-09-20 | Outpatient (CLI) | payer OTHER | LOC: SUN.DIA 15:04 | DX: E11.9 Type 2 diabetes mellitus without complications (principal); Z79.4 Long term (current) use of insulin; E78.5 Hyperlipidemia, unspecified; I10 Essential (primary) hypertension | CPT/HCPCS: G0109 ==

== ENCOUNTER 2018-10-19 09:20 | Inpatient (IN) | payer OTHER ==
[~2018-10-19] VITALS: Ht 170.2 cm; Wt 64.0 kg
[2018-10-19] VITALS (14 sets, daily range): BP systolic 116–140; BP diastolic 63–77; PULSE 81–100; TEMP 97.9–99
[~2018-10-19 09:20] MED LIST changes: +LOPRESSOR 225 MG/TAB PO; -LOPRESSOR100 MG PO
--- NOTE | 2018-10-19 14:00 | NUR ---
PT ARRIVED TO ROOM 306 FROM [facility] ACCOMPANIED BY SPOUSE.PT ORIENTED TO ROOM.IV STARTED BY DONNA MATUTE.ADMISSION ASSESSMENT AND IV STARTED BY DONNA MATUTE.PT STABLE.VSS.STAT H&H OBTAINED.HGB 5.8.ORDER TO TRANSFUSE 2UNITS PF PRBC.PT SIGNED BLOOD CONSENT.NO NEEDS VOICED AT THIS TIME.CALL LIGHT IN REACH
[2018-10-19] MEDS ORDERED: MAGNESIUM500 MG PO (14:09)
[2018-10-19] MEDS ORDERED: CREON 120000 U-1 ECC PO (14:09)
[2018-10-19] MEDS ORDERED: VITAMIN D PO (14:10)
[2018-10-19] MEDS ORDERED: ICAPS AREDS FO1 EACH PO (14:11)
[2018-10-19] MEDS ORDERED: MEN'S MULTIVIT1 EAC1 PO (14:11)
[2018-10-19] MEDS ORDERED: NOVOLOG FLEX100 U/ML SQ (14:13)
[2018-10-19 14:22] LABS: INR 1.1 (0.8-3.0); PROTHROMBIN TIME 12.6 SECONDS (9.7-12.8)
[2018-10-19 14:23] LABS: BASO # 0.1 (0.0-0.2); BASO % 0.5 % (0.0-2.0); EOS # 0.2 (0.0-0.7); EOS % 1.8 % (0-4.0); GRAN # 6.8 (1.4-6.5); GRAN % 65.3 % (42.2-75.2); LYMPH # 2.5 (1.2-3.4); LYMPH % 24.3 % (20.0-51.0); MEAN CELL VOLUME 69 fl (80.0-100.0); MEAN CORPUSCULAR HGB CONC 27 g/dl (33.0-37.0); MEAN PLATELET VOLUME 9.9 fl (7.4-10.4); MONO # 0.8 (0.1-0.6); MONO % 7.7 % (1.7-9.3); PLATELET COUNT 255 K/mm3 (130-400); RED BLOOD COUNT 3.15 M/mm3 (4.20-5.60); REDCELL DISTRIBUTION WIDTH-CV 18.6 % (11.5-14.5)
[2018-10-19 14:32] LABS: HEMATOCRIT 21.6 % (42.0-52.0); HEMOGLOBIN 5.8 g/dl (13.5-18.0); MEAN CORPUSCULAR HEMOGLOBIN 18 pg (27.0-31.0)
[2018-10-19 14:37] LABS: ALANINE AMINOTRANSFERASE < 6 U/L (21-72); ALBUMIN 4.3 gm/dL (3.5-5.0); ALKALINE PHOSPHATASE 88 U/L (50-136); ANION GAP 12 mmol/L (7-16); AST,SGOT 22 U/L (15-37); BILIRUBIN,TOTAL 0.4 mg/dL (0.0-1.0); BLOOD UREA NITROGEN 23 mg/dL (9-20); CALCIUM 9.6 mg/dL (8.4-10.2); CARBON DIOXIDE 19 mmol/L (22-30); CHLORIDE 109 mmol/L (98-107); CREATININE, serum 1.26 (0.66-1.25); GLUCOSE 124 mg/dL (74-106); POTASSIUM 4.1 mmol/L (3.4-5.0); SODIUM 139 mmol/L (137-145); TOTAL PROTEIN 7.8 gm/dL (6.4-8.2)
[2018-10-19 16:16] LABS: IRON,SERUM 17 ug/dL (35-150)
[2018-10-19 16:25] LABS: TOTAL IRON BINDING CAPACITY 482 ug/dL (261-462)
[2018-10-19 16:51] LABS: FERRITIN 7 ng/mL (18-464)
--- NOTE | 2018-10-19 17:14 | NUR ---
BLOOD STARTED AT THIS TIME.VSS.PT TOLERATING WELL.DENIES ANY SOB.PT IS AFEBRILE.NO NEEDS VOICED.
--- NOTE | 2018-10-19 17:15 | NUR ---
PT AWARE OF COLONSCOPY SCHEDULED FOR TOMORROW 1200.EDUCATION PROVIDED ON BOWEL PREP.PT VOICE UNDERSTANDING.DENIES HAVING ANY BLOODY STOOLS.NO OTHER NEEDS VOICED AT THIS TIME.CALL LIGHT IN REACH
--- NOTE | 2018-10-19 17:30 | NUR ---
REPORT GGIVEN TO DONNA OTT.
--- NOTE | 2018-10-19 18:50 | NUR ---
Report with DONNA Kimble. Pt sitting up in bed, reports slight cramping starting to right abdomen. Bowel prep has started, pt advised to take sips and notify nurse if pain worsens. Blood transfusion continues without s/s of complications. No further needs reported. Call light in reach.
--- NOTE | 2018-10-19 19:56 | NUR ---
Second unit of blood started at this time
--- NOTE | 2018-10-19 20:01 | NUR ---
Resting in bed. Assessment complete. Lungs clear. Heart sounds normal. Bowels active x4. Pulses strong throughout. No edema noted. Bruising to left arm-patient reports from prior to hospitalization. Denies pain. Denies needs at this time. Call light in reach.
--- NOTE | 2018-10-19 22:42 | NUR ---
Transfusion ended at this time. Tolerated well
[2018-10-20] VITALS (8 sets, daily range): BP systolic 104–142; BP diastolic 69–81; PULSE 79–93; TEMP 97.8–98.7
--- NOTE | 2018-10-20 00:30 | NUR ---
Up to restroom and returned to bed. CAll light in reach.
[2018-10-20 01:04] LABS: HEMATOCRIT 25.7 % (42.0-52.0); HEMOGLOBIN 7.4 g/dl (13.5-18.0)
--- NOTE | 2018-10-20 04:00 | NUR ---
Resting in bed. Call light in reach.
--- NOTE | 2018-10-20 04:23 | NUR ---
Resting in bed. Reports stool mostly clear. Requested next bowel movement call to allow staff to assess. Denies other needs. Call light in reach.
[2018-10-20 05:56] LABS: BASO # 0.1 (0.0-0.2); BASO % 0.9 % (0.0-2.0); EOS # 0.2 (0.0-0.7); EOS % 3.2 % (0-4.0); GRAN # 3.5 (1.4-6.5); GRAN % 53.1 % (42.2-75.2); LYMPH % 30.3 % (20.0-51.0); MEAN CELL VOLUME 72 fl (80.0-100.0); MEAN CORPUSCULAR HGB CONC 28 g/dl (33.0-37.0); MONO # 0.8 (0.1-0.6); MONO % 12.2 % (1.7-9.3); PLATELET COUNT 219 K/mm3 (130-400); RED BLOOD COUNT 3.77 M/mm3 (4.20-5.60); REDCELL DISTRIBUTION WIDTH-CV 20.8 % (11.5-14.5)
[2018-10-20 06:04] LABS: HEMOGLOBIN 7.7 g/dl (13.5-18.0); MEAN CORPUSCULAR HEMOGLOBIN 20 pg (27.0-31.0)
[2018-10-20 06:05] LABS: HEMATOCRIT 27.1 % (42.0-52.0)
[2018-10-20 06:08] LABS: CALCIUM 9.8 mg/dL (8.4-10.2); CREATININE, serum 1.16 (0.66-1.25)
--- NOTE | 2018-10-20 07:26 | NUR ---
Report given to DONNA Watson. Patient was transfused 2 units of blood at beginning of shift. Bowel prep throughout night. Stool yellow/clear with 1 formed stool present. Continued to work on prep. Denies needs this AM.
[2018-10-20 07:41] LABS: RETIC # 0.03 M/mm3 (0.02-0.16); RETIC % 0.9 % (0.5-3.52)
--- NOTE | 2018-10-20 09:55 | NUR ---
Assessment complete.patient awake,a/ox3.denies pain or discomfort at this time.LSCTA.breathing even and unlabored.patient remains NPO for EGD/colonoscopy.reports that BM are clear.HGB this morning was 7.7.all meds given.consent signed.IVF infusing.Blood glucose stable.no other needs voiced at this time.will continue to monitor.call light in reach
--- NOTE | 2018-10-20 12:08 | NUR ---
Initial visit; Patient thanked Green Building Energy Engineer for looking in on him and wishing him well.
[2018-10-20] MEDS ORDERED: FERROUS SU325 MG/TAB PO (14:25)
--- NOTE | 2018-10-20 16:21 | NUR ---
SW met with patient to discuss discharge planning. Patient lives independently at home with is . Patient's PCP is Dr Awad and he obtains prescriptions from [facility]. Patient does not use any home health services or DME. Patient does not have a DPOA. SW does not anticipate any discharge needs.
--- NOTE | 2018-10-20 17:09 | NUR ---
PT DISCHARGE AT THIS TIME.ALL DISCHARGE INSTRUCTIONS REVIEWED.IV AND TELE DISCONTINUED.VSS POST PROCEDURE.TOLERATED INTAKE WELL.ALL PAPERWORK SIGNED.ALL BELONGINGS TAKEN.ALL QUESTIONS ANSWERED.THIS RN ESCORTED PT OUT
== END 2018-10-20 17:13 | disposition home or self-care (01) | DRG 812 ==
LOC: MEDICAL 09:20
PROVIDERS: Internal Medicine Gastroenterology; Physician Assistant; ADMIT Internal Medicine
PROC: 0DBP8ZX Excision of Rectum, Via Natural or Artificial Opening Endoscopic, Diagnostic (ICD-10-PCS; principal; 2018-10-20 15:15)
PROC: 30233N1 Transfusion of Nonautologous Red Blood Cells into Peripheral Vein, Percutaneous Approach (ICD-10-PCS; principal; 2018-10-20 15:15)
PROC: 0DJ08ZZ Inspection of Upper Intestinal Tract, Via Natural or Artificial Opening Endoscopic (ICD-10-PCS; principal; 2018-10-20 15:15)
DX: D50.9 Iron deficiency anemia, unspecified (principal); E87.2 Acidosis; K57.90 Diverticulosis of intestine, part unspecified, without perforation or abscess without bleeding; I10 Essential (primary) hypertension; E78.5 Hyperlipidemia, unspecified; K21.9 Gastro-esophageal reflux disease without esophagitis; E11.9 Type 2 diabetes mellitus without complications; Z86.718 Personal history of other venous thrombosis and embolism; F17.210 Nicotine dependence, cigarettes, uncomplicated; K62.1 Rectal polyp
CPT/HCPCS: 99222-AI; 99239; C9113; J2704; J3010; J7030; P9016

== ENCOUNTER → 2018-12-25 | Outpatient (CLI) | payer OTHER ==
[~2018-12-25] MED LIST changes: +CREON 120000 U-1 ECC PO; +FERROUS SU325 MG/TAB PO; +ICAPS AREDS FO1 EACH PO; +MAGNESIUM500 MG PO; +MEN'S MULTIVIT1 EAC1 PO; +NOVOLOG FLEX100 U/ML SQ; +VITAMIN D PO
== END ==
LOC: COL.VAS 12:21
DX: I35.2 Nonrheumatic aortic (valve) stenosis with insufficiency (principal); I34.0 Nonrheumatic mitral (valve) insufficiency

== ENCOUNTER → 2019-01-09 | Outpatient (CLI) | payer OTHER | LOC: DIA.ED 12-05 15:17 | DX: E11.9 Type 2 diabetes mellitus without complications (principal); E78.5 Hyperlipidemia, unspecified; I10 Essential (primary) hypertension; Z79.4 Long term (current) use of insulin | CPT/HCPCS: G0108 ==

== ENCOUNTER → 2020-02-08 | Outpatient (CLI) | payer OTHER | LOC: COL.VAS 12:20 | DX: I35.0 Nonrheumatic aortic (valve) stenosis (principal); I51.7 Cardiomegaly ==

== ENCOUNTER → 2021-04-14 | Outpatient (CLI) | payer MEDICARE | LOC: COL.RAD 08:03 | DX: Z13.6 Encounter for screening for cardiovascular disorders (principal); F17.210 Nicotine dependence, cigarettes, uncomplicated ==

== ENCOUNTER → 2021-06-17 | Outpatient (CLI) | payer MEDICARE | LOC: COL.VAS 12:53 | DX: I08.0 Rheumatic disorders of both mitral and aortic valves (principal); I73.9 Peripheral vascular disease, unspecified ==

== ENCOUNTER 2022-02-15 07:49 | Outpatient (CLI) | payer MEDICARE ==
[~2022-02-15] VITALS: Ht 170.2 cm; Wt 70.5 kg
[2022-02-15] VITALS (7 sets, daily range): BP systolic 142–178; BP diastolic 72–88; PULSE 54–60; TEMP 98.7
[2022-02-15] MEDS ORDERED: NATURAL IRON65 MG PO (08:47)
[2022-02-15] MEDS ORDERED: NORVASC 10MG10 MG PO (08:49)
[2022-02-15] MEDS ORDERED: HYZAAR 50-12.1 UDTAB PO (08:49)
[2022-02-15] MEDS ORDERED: LANTUS SOLOS100 U/ML SQ (08:49)
[2022-02-15] MEDS ORDERED: ACTOS 15MG TAB15 MG PO (08:50)
[2022-02-15] MEDS ORDERED: ONE-A-DAY ESSE1 EACH PO (08:50)
--- NOTE | 2022-02-15 13:30 | NUR ---
Pt tolerated infusion without issue. IV site DC'd and wrapped with coban. Pt has steady gait. Uses restroom prior to exiting dept. gold nib grinder was in place throughout mag infusion. Information packet also was printed for pt regarding low magnesium levels.
== END 2022-02-15 13:30 | disposition home or self-care (01) ==
LOC: EUO 07:49
DX: E83.42 Hypomagnesemia (principal)
CPT/HCPCS: J3475

== ENCOUNTER 2024-01-05 04:02 | Inpatient (IN) | payer MEDICARE ==
[~2024-01-05] VITALS: Ht 170.2 cm; Wt 71.3 kg
[2024-01-05] VITALS (11 sets, daily range): BP systolic 111–159; BP diastolic 64–82; PULSE 93–107; TEMP 97.3–98.4
[~2024-01-05 04:02] MED LIST changes: +ACTOS 15MG TAB15 MG PO; +ASPIRIN 81M81 MG/TA2 PO; +COREG 6.256.25 MG/TA PO; +COREG12.5 MG PO; +HYZAAR 50-12.1 UDTAB PO; +LANTUS SOLOS100 U/ML SQ; +MAGNESIUM250 M1 PO; -MAGNESIUM500 MG PO; +NATURAL IRON65 MG PO; +ONE-A-DAY ESSE1 EACH PO; +PLAVIX 75MG TAB75 MG PO
[2024-01-05] MEDS ORDERED: Pantoprazole 40 MG in NS 100 ML IV ONE (04:45)
[2024-01-05] MEDS ORDERED: Pantoprazole 40 MG in NS 10 ML IV ONE (04:45)
[2024-01-05] MEDS ORDERED: fentaNYL 50 MCG/ML 2 ML VIAL IV ONE ×2 (04:45→07:00)
[2024-01-05] MEDS ORDERED: Ondansetron 4 MG/2 ML VIAL IV ONE (04:45)
[2024-01-05] MEDS ORDERED: NS 250 ML IV ONE (04:45)
[2024-01-05] MEDS ORDERED: Pantoprazole 80 MG in NS 100 ML IV ONE (04:45)
[2024-01-05 04:48] LABS: MEAN CELL VOLUME 111 fl (80.0-100.0); MEAN CORPUSCULAR HGB CONC 30 g/dl (33.0-37.0); MEAN PLATELET VOLUME 10.8 fl (7.4-10.4); PLATELET COUNT 223 K/mm3 (130-400); RED BLOOD COUNT 2.19 M/mm3 (4.20-5.60); REDCELL DISTRIBUTION WIDTH-CV 14.6 % (11.5-14.5)
[2024-01-05 04:50] LABS: INR 1.1 (0.8-3.0)
[2024-01-05 04:53] LABS: PARTIAL THROMBOPLASTIN TIME 23.8 SECONDS (26.0-37.0)
[2024-01-05 04:57] LABS: HEMATOCRIT 24.2 % (42.0-52.0); HEMOGLOBIN 7.2 g/dl (13.5-18.0); MEAN CORPUSCULAR HEMOGLOBIN 33 pg (27-31)
[2024-01-05 05:09] LABS: ALBUMIN 2.9 g/dL (3.4-4.8); BILIRUBIN,TOTAL 0.2 mg/dL (0.2-1.2); CALCIUM 8.5 mg/dL (8.4-10.2); CREATININE, serum 2.2 mg/dL (0.72-1.25); TOTAL PROTEIN 5.5 g/dl (6.2-8.1)
[2024-01-05 05:23] LABS: BAND 1 % (0-10); LYMPHOCYTE 43 % (20.0-51.0); NEUTROPHILS 50 % (42.0-75.2)
[2024-01-05 05:24] LABS: PLATELET ESTIMATE NORMAL (NORMAL)
[2024-01-05 05:40] LABS: COLLECTION METHOD CLEAN CATCH
[2024-01-05 05:47] LABS: URINE APPEARANCE CLEAR (CLEAR/HAZY); URINE BLOOD NEGATIVE (NEGATIVE); URINE COLOR YELLOW (YELLOW); URINE GLUCOSE 3+ (NEGATIVE); URINE KETONE TRACE (NEGATIVE); URINE NITRATE NEGATIVE (NEGATIVE); URINE PROTEIN(semi-quant) NEGATIVE (NEGATIVE); URINE UROBILINOGEN 0.2 E.U/dL (0.2-1.0)
[2024-01-05] MEDS ORDERED: Ondansetron 4 MG/2 ML VIAL IV PRN ×3 (08:15→15:00)
[2024-01-05] MEDS ORDERED: NS 1,000 ML IV ONE ×2 (08:15→12:00)
[2024-01-05] MEDS ORDERED: Dextrose (Glucose) 15 GM (4 x 3.75 GM) Chewable TABLET PACK PO PRN (08:15)
[2024-01-05] MEDS ORDERED: Glucagon 1 MG VIAL IM PRN (08:15)
[2024-01-05] MEDS ORDERED: Dextrose 50% Water 25 GM/50 ML SYRINGE IV PRN (08:15)
[2024-01-05] MEDS ORDERED: Acetaminophen 500 MG TAB PO PRN (08:15)
[2024-01-05] MEDS ORDERED: PROTONIX 40MG T40 MG PO (10:09)
[2024-01-05] MEDS ORDERED: CRESTOR20 MG PO (10:10)
--- NOTE | 2024-01-05 10:24 | NUR ---
PATIENT ARRIVED TO MEDICAL FLOOR AT APPROX 1005. PATIENT IS PLEASANT, ALERT, AND ORIENTED. INTAKE AND PHYSICAL ASSESSMENT COMPLETE. GENERALIZED ECCHYMOSIS NOTED TO BUE. PATIENT STATES PAIN IN HIS STOMACH IS INTERMITTENT. DENIES PAIN, NAUSEA, OR DISCOMFORT AT THIS TIME. ORIENTED TO ROOM. ALL NEEDS MET AT THIS TIME. CALL LIGHT WITHIN REACH.
[2024-01-05 10:25] LABS: BASO % 0.3 % (0.0-2.0); EOS % 0.1 % (0.0-4.0); GRAN # 10.1 K/mm3 (1.4-6.5); GRAN % 85.2 % (42.2-75.2); LYMPH # 1.1 K/mm3 (1.2-3.4); LYMPH % 9.2 % (20.0-51.0); MEAN CORPUSCULAR HGB CONC 31 g/dl (33.0-37.0); MEAN PLATELET VOLUME 10.5 fl (7.4-10.4); MONO # 0.6 K/mm3 (0.1-0.6); MONO % 4.6 % (1.7-9.3); PLATELET COUNT 159 K/mm3 (130-400); RED BLOOD COUNT 1.74 M/mm3 (4.20-5.60); REDCELL DISTRIBUTION WIDTH-CV 14.5 % (11.5-14.5)
[2024-01-05 10:44] LABS: HEMATOCRIT 18.3 % (42.0-52.0); HEMOGLOBIN 5.7 g/dl (13.5-18.0); MEAN CELL VOLUME 105 fl (80.0-100.0); MEAN CORPUSCULAR HEMOGLOBIN 33 pg (27-31)
[2024-01-05] MEDS ORDERED: Insulin Lispro (HumaLOG) SQ SCH (12:00)
--- NOTE | 2024-01-05 13:09 | NUR ---
THIS RN INITIATED BLOOD TRANSFUSION. SECOND RN VERIFIED. PATIENT IS ALERT AND ORIENTED. TOLERATING WELL. WILL REMAIN IN ROOM FOR NEXT 15 MINUTES. BLOOD INFUSING AT 60 ML/HR.
[2024-01-05] MEDS ORDERED: fentaNYL 50 MCG/ML 2 ML VIAL ONE (13:51)
[2024-01-05] MEDS ORDERED: Succinylcholine PF 200 MG/10 ML SYRINGE IV ONE (13:51)
[2024-01-05] MEDS ORDERED: Lidocaine PF 2% (20 MG/ML) 5 ML VIAL ONE (13:51)
--- NOTE | 2024-01-05 13:58 | NUR ---
#22g started to LAC x2 attempts.
--- NOTE | 2024-01-05 14:18 | NUR ---
PATIENT DOWN TO ENDO AT 1410. ALERT AND ORIENTED, BLOOD STILL INFUSING.
[2024-01-05] MEDS ORDERED: Morphine 2 MG/1 ML VIAL [PACU/SDC ONLY] IV PRN (15:00)
[2024-01-05] MEDS ORDERED: fentaNYL 50 MCG/ML 1 ML SYRINGE/VIAL [PACU/SDC ONLY] IV PRN (15:00)
[2024-01-05] MEDS ORDERED: droPERidol 2.5 MG/ML 2 ML VIAL IV PRN (15:00)
[2024-01-05] MEDS ORDERED: Meperidine 50 MG/ML 1 ML VIAL IV PRN (15:00)
[2024-01-05] MEDS ORDERED: HYDROmorphone 1 MG/1 ML SYRINGE [PACU/SDC ONLY] IV PRN (15:00)
--- NOTE | 2024-01-05 16:13 | NUR ---
psychiatric social worker attempted to meet with patient but was visiting with a doctor. SW attempted to meet with patient but he was being sent to EGD procedure. SW will follow up to complete assessment.
--- NOTE | 2024-01-05 16:28 | NUR ---
PATIENT BACK FROM EGD. ALERT AND ORIENTED. VSS. POST OP VS INITIATED. DENIES PAIN OR DISCOMFORT. FAMILY AT BEDSIDE. CALL LIGHT WITHIN REACH. WILL MONITOR
[2024-01-05] MEDS ORDERED: NS 1,000 ML IV SCH (16:30)
[2024-01-05] MEDS ORDERED: Pancrelipase DR CAP (10,500 Units Lipase) PO SCH (17:00)
[2024-01-05 17:26] LABS: HEMATOCRIT 22.8 % (42.0-52.0); HEMOGLOBIN 7.4 g/dl (13.5-18.0)
--- NOTE | 2024-01-05 19:00 | NUR ---
PATIENT RESTING IN BED WITH TV OFF WITH NO FAMILY PRESENT WITH NO ACUTE DISTRESS NOTED. PATEINT PLACED ON 2 LITERS OF OXYGEN VIA NC AT THIS TIME. NS INFUSING INTO LEFT AC WITH NO COMPLICATIONS NOTED. TELEMETRY INTACT. BEDSIDE REPORT COMPLETED WITH AFSHAN AT THIS TIME. TRAY REMOVED FROM ROOM. PATIENT DENIES ANY NEEDS AT THIS TIME. IN TO SEE PATIENT. BED IN LOW POSITION WITH WHEELS LOCKED WITH RAILS UP X3 AND CALL LIGHT WITHIN REACH.
[2024-01-05] MEDS ORDERED: Ferrous Sulfate 325 MG TAB PO SCH (21:00)
[2024-01-05] MEDS ORDERED: Atorvastatin 40 MG TAB PO SCH (21:00)
[2024-01-05] MEDS ORDERED: Rosuvastatin 20 MG **** subs to Atorvastatin 40 MG PO SCH (21:00)
[2024-01-05] MEDS ORDERED: Insulin Glargine-ygfn (Lantus) SQ SCH (21:00)
[2024-01-05] MEDS ORDERED: Pantoprazole 40 MG in NS 10 ML IV SCH (21:00)
--- NOTE | 2024-01-05 21:26 | NUR ---
PATIENT RESTING IN BED LYING ON STOMACH WITH TV OFF WITH NO FAMILY PRESENT WITH NO ACUTE DISTRESS NOTED. PATIENT ON 2 LITERS OF OXYGEN VIA NC. NS INFUSING INTO LEFT AC WITH NO COMPLICATIONS NOTED. TELEMETRY INTACT. ASSESSMENT AND MEDICATION ADMINISTRATION COMPLETED AT THIS TIME. PATIENT TOLERATED WELL. PATIENT DENIES ANY NEEDS AT THIS TIME. BED IN LOW POSITION WITH WHEELS LOCKED WITH RAILS UP X3 AND CALL LIGHT WITHIN REACH.
[2024-01-06] VITALS (17 sets, daily range): BP systolic 93–133; BP diastolic 54–69; PULSE 83–94; TEMP 97.4–98.7
--- NOTE | 2024-01-06 09:08 | NUR ---
PATIENT RESTING IN BED. ALERT AND ORIENTED. PATIENT DENIES ABDOMINAL PAIN, NAUSEA, VOMITING, OR DIARRHEA. PATIENT DOES NOT HAVE AN APPETITE YET. PATIENT HAS BEEN TOLERATING FLUIDS WELL. TELEMETRY ON. ALL NEEDS MET AT THIS TIME. CALL LIGHT WITHIN REACH.
[2024-01-06 09:45] LABS: BASO # 0.1 K/mm3 (0.0-0.2); BASO % 0.5 % (0.0-2.0); EOS # 0.1 K/mm3 (0.0-0.7); EOS % 0.6 % (0.0-4.0); GRAN # 7.4 K/mm3 (1.4-6.5); GRAN % 75.5 % (42.2-75.2); HEMATOCRIT 19.8 % (42.0-52.0); LYMPH # 1.6 K/mm3 (1.2-3.4); MEAN CELL VOLUME 99 fl (80.0-100.0); MEAN CORPUSCULAR HEMOGLOBIN 32 pg (27-31); MEAN CORPUSCULAR HGB CONC 32 g/dl (33.0-37.0); MEAN PLATELET VOLUME 10.6 fl (7.4-10.4); MONO # 0.7 K/mm3 (0.1-0.6); MONO % 7.1 % (1.7-9.3); PLATELET COUNT 125 K/mm3 (130-400); REDCELL DISTRIBUTION WIDTH-CV 19.5 % (11.5-14.5)
[2024-01-06 09:46] LABS: HEMOGLOBIN 6.4 g/dl (13.5-18.0)
--- NOTE | 2024-01-06 09:53 | NUR ---
CRITICAL LAB VALUE HGB 6.4. THIS RN NOTIFIED DR MIN.
[2024-01-06 09:57] LABS: CALCIUM 8.1 mg/dL (8.4-10.2); CREATININE, serum 1.27 mg/dL (0.72-1.25); POTASSIUM 3.9 mEq/L (3.5-4.5)
--- NOTE | 2024-01-06 11:12 | NUR ---
THIS RN INITIATED BLOOD TRANSFUSION. ANOTHER RN VERIFIED PRIOR TO ADMINISTRATION PER PROTOCOL. WILL REMAIN WITH PATIENT FOR NEXT 15 MINUTES. VSS. NO SIGNS OF ACUTE DISTRESS, SOA, OR PAIN. DR MIN IN TO SEE PATIENT
--- NOTE | 2024-01-06 11:22 | NUR ---
THIS RN MONIORED PATIENT FOR 15 MINUTES AFTER BLOOD TRANSFUSION WAS INITIATED. NO TRANSFUSION REACTIONS NOTED. VSS. RATE INCREASED TO 150ML/HR. WILL MONITOR
[2024-01-06] MEDS ORDERED: Cyanocobalamin (Vit B-12) 1,000 MCG TAB PO SCH (12:30)
[2024-01-06] MEDS ORDERED: Folic Acid 1 MG TAB PO SCH (12:30)
--- NOTE | 2024-01-06 14:56 | NUR ---
D: Booky stopped by room on rounds. A: Pt was resting and content with and grand daugther in the room. No needs right now. P: Booky informed pt that if he needed anything from the lacquer pin press operator area to let his nurse know. Booky will follow up as needed.
--- NOTE | 2024-01-06 15:13 | NUR ---
plant operations worker met with patient and his , María, Abdiaziz# [phone], to discuss discharge planning. Patient lives in [place] with his . PCP is Dr. Muro, Pharmacy is [facility] in [place]. No issues affording medications. INsurance is Medicare [employer]. No DPOA-HC but was interested in reviewing the form and they may complete it outside of the hospital. SW provided patient and his a blank DPOA-HC form. Patient does not currently use any DME but they have a walker, cane, shower chair and grab bars if patient needs those upon discharge. Patient reports to be independent with ADLS and his transports him to and from appointments due to his eye sight. Patient would like to return home at time of discharge. Discharge plan: Home
[2024-01-06 18:03] LABS: HEMATOCRIT 24.1 % (42.0-52.0); HEMOGLOBIN 7.8 g/dl (13.5-18.0)
--- NOTE | 2024-01-06 18:57 | NUR ---
PATIENT SITTING UP IN BED WITH TV ON WITH NO FAMILY PRESENT WITH NO ACUTE DISTRESS NOTED. PATIENT ON ROOM AIR. INT TO LEFT HAND AND LEFT AC INTACT WITH NO COMPLICATIONS NOTED. TELEMETRY INTACT. BEDSIDE SHIFT REPORT COMPLETED WITH AFSHAN AT THIS TIME. PATIENT DENIES ANY NEEDS. BED IN LOW POSITION WITH WHEELS LOCKED WITH RAILS UP X3 AND CALL LIGHT WITHIN REACH.
--- NOTE | 2024-01-06 19:34 | NUR ---
PATIENT RESTING IN BED WITH TV ON WITH FAMILY AT BEDSIDE WITH NO ACUTE DISTRESS NOTED. PATIENT ON ROOM AIR. INT TO LEFT HAND AND LEFT AC INTACT WITH NO COMPLICATIONS NOTED. TELEMETRY INTACT. ASSESSMENT COMPLETED AT THIS TIME. PATIENT TOLERATED WELL. PATIENT DENIES ANY NEEDS. BED IN LOW POSITION WITH WHEELS LOCKED WITH RAILS UP X3 AND CALL LIGHT WITHIN REACH.
--- NOTE | 2024-01-06 21:08 | NUR ---
PATIENT RESTING IN BED WITH TV ON WITH NO FAMILY PRESENT WITH NO ACUTE DISTRESS NOTED. PATIENT ON ROOM AIR. TELEMETRY INTACT. INT TO LEFT HAND AND LEFT AC INTACT WITH NO COMPLICATIONS NOTED. MEDICATION ADMINISTRATION COMPLETED AT THIS TIME. PATIENT TOLERATED WELL. PATIENT DENIES ANY NEEDS. BED IN LOW POSITION WITH WHEELS LOCKED WITH RAILS UP X3 AND CALL LIGHT WITHIN REACH.
[2024-01-07] VITALS: BP_SYST 123
[2024-01-07 02:58] VITALS: BP 111/47; PULSE 82; TEMP 97.6
[2024-01-07 04:00] VITALS: BP_SYST 111
[2024-01-07 07:15] VITALS: BP 131/66; PULSE 89; TEMP 97.5
--- NOTE | 2024-01-07 07:45 | NUR ---
Patient laying in bed watching TV. A&Ox4. VSS. IV CDI. Denies pain and discomfort. Wanting to go home today. No further needs expressed. Call light within reach
[2024-01-07 08:08] LABS: CALCIUM 8.4 mg/dL (8.4-10.2); POTASSIUM 3.5 mEq/L (3.5-4.5)
[2024-01-07 08:45] LABS: BASO % 0.4 % (0.0-2.0); EOS % 0.4 % (0.0-4.0); GRAN # 6.2 K/mm3 (1.4-6.5); GRAN % 72.5 % (42.2-75.2); HEMOGLOBIN 8.2 g/dl (13.5-18.0); LYMPH # 1.7 K/mm3 (1.2-3.4); LYMPH % 20.3 % (20.0-51.0); MEAN CELL VOLUME 95 fl (80.0-100.0); MEAN CORPUSCULAR HEMOGLOBIN 31 pg (27-31); MEAN CORPUSCULAR HGB CONC 33 g/dl (33.0-37.0); MEAN PLATELET VOLUME 10.1 fl (7.4-10.4); MONO # 0.5 K/mm3 (0.1-0.6); PLATELET COUNT 127 K/mm3 (130-400); RED BLOOD COUNT 2.63 M/mm3 (4.20-5.60); REDCELL DISTRIBUTION WIDTH-CV 18.9 % (11.5-14.5)
[2024-01-07] MEDS ORDERED: PROTONIX 40MG T40 MG PO (08:57)
[2024-01-07] MEDS ORDERED: VITAMIN B12 681 TAB PO (08:58)
[2024-01-07] MEDS ORDERED: FOLIC ACID 11 MG/TA1 PO (08:59)
--- NOTE | 2024-01-07 09:42 | NUR ---
Discharge paperwork reviewed with the patient. Patient and family verbalized an understanding to follow doctors orders. IV removed, tip intact. Gauze and coban applied. PAtient ambulated independently to awaiting vehicle with personal belongings. No further needs expressed.
== END 2024-01-07 09:45 | disposition home or self-care (01) | DRG 378 ==
LOC: COL.ER 04:02 → MEDICAL 07:58
PROVIDERS: Emergency Medicine; Internal Medicine Gastroenterology; ADMIT Internal Medicine
PROC: 30233N1 Transfusion of Nonautologous Red Blood Cells into Peripheral Vein, Percutaneous Approach (ICD-10-PCS; 2024-01-05)
PROC: 0W3P8ZZ Control Bleeding in Gastrointestinal Tract, Via Natural or Artificial Opening Endoscopic (ICD-10-PCS; principal; 2024-01-05 14:45)
DX: K31.811 Angiodysplasia of stomach and duodenum with bleeding (principal); D62 Acute posthemorrhagic anemia; N17.9 Acute kidney failure, unspecified; E11.65 Type 2 diabetes mellitus with hyperglycemia; K21.9 Gastro-esophageal reflux disease without esophagitis; F17.210 Nicotine dependence, cigarettes, uncomplicated; I10 Essential (primary) hypertension; D50.9 Iron deficiency anemia, unspecified; K31.89 Other diseases of stomach and duodenum; K44.9 Diaphragmatic hernia without obstruction or gangrene; E53.8 Deficiency of other specified B group vitamins; D72.829 Elevated white blood cell count, unspecified; K57.31 Diverticulosis of large intestine without perforation or abscess with bleeding; E78.5 Hyperlipidemia, unspecified; Z86.718 Personal history of other venous thrombosis and embolism; Z88.0 Allergy status to penicillin; Z87.19 Personal history of other diseases of the digestive system; Z79.82 Long term (current) use of aspirin; Z79.02 Long term (current) use of antithrombotics/antiplatelets; Z79.4 Long term (current) use of insulin; Z79.899 Other long term (current) drug therapy; Z90.49 Acquired absence of other specified parts of digestive tract
CPT/HCPCS: J0780; J1815; J2405; J2470; J2704; J3010; J7030; J7050; P9016